=== PATIENT | female | born 1960 | race Caucasian/White ===

== ENCOUNTER → 2016-06-29 | Outpatient (CLI) | payer SELFPAY ==
--- NOTE | 2016-06-29 13:00 | DI ---
XR KNEE CMPT 4 OR MORE VWS,06/29/2016 11:33 AM: Clinical History: Acute right knee pain. Previous Exam: None at this facility. Findings: AP views of both knees as well as a lateral view of the right knee are obtained, and demonstrate mild loss of joint space within the medial compartments bilaterally as well as some mild degenerative felipe nges within the anterior compartment. There is no evidence of a knee joint effusion. Impression: Mild degenerative osteoarthritis of the right knee.
--- NOTE | 2016-06-29 13:02 | DI ---
XR KNEE CMPT 4 OR MORE VWS,06/29/2016 11:33 AM: Clinical History: Acute left knee pain. Previous Exam: None at this facility. Findings: AP and sunrise views of both knees are obtained as well as a lateral view of the left knee, and demon strate loss of joint space within the anterior and medial compartments bilaterally. There is no soft tissue swelling nor knee joint effusion. There is osteophyte formation within the anterior compartments worse on the right than on the left. Impression: Mild early degenerative changes of the medial and anterior compartments.
== END ==
LOC: ORTHO 11:50
PROVIDERS: ATTEND Orthopaedic Surgery
DX: M25.561 Pain in right knee (principal); M25.562 Pain in left knee; M17.0 Bilateral primary osteoarthritis of knee
CPT/HCPCS: 73564